=== PATIENT | male | born 1975 | race Asian ===

== ENCOUNTER 2023-11-24 21:12 | Emergency (ER) | payer OTHER ==
[~2023-11-24] VITALS: Ht 167.6 cm; Wt 48.3 kg
[2023-11-24 22:29] VITALS: BP 129/98; PULSE 88; RESP 20; TEMP 98.5
== END 2023-11-24 23:00 | disposition left against medical advice (07) ==
LOC: EMS 21:15
DX: F15.10 Other stimulant abuse, uncomplicated (principal)
CPT/HCPCS: 99283; Z7502